=== PATIENT | male | born 1990 | race Caucasian/White ===

== ENCOUNTER 2021-06-25 11:26 | Inpatient (IN) ==
[2021-06-25] MEDS ORDERED: Azithromycin 500 MG in 0.9 % Sodium Chloride 250 ML IVPB ONE (11:41)
[2021-06-25] MEDS ORDERED: Ibuprofen 600 MG TABLET PO ONE (11:41)
[2021-06-25] MEDS ORDERED: cefTRIAXone 1,000 MG in 0.9 % Sodium Chloride 10 ML IVP ONE (11:41)
[2021-06-25] MEDS ORDERED: 0.9 % Sodium Chloride 1,000 ML IVC ONE (11:41)
[2021-06-25] MEDS ORDERED: Albuterol 2.5 MG/3 ML NEBULIZER IH ONE (11:42)
[2021-06-25 12:24] LABS: Eosinophils % 0.1 %
[2021-06-25 12:26] LABS: Basophils % 0.2 %; Hematocrit 41.8 % (37.5-50.1); Hemoglobin 13.7 g/dL (12.9-16.9); Immature Granulocytes % 0.7 % (0-4); Immature Platelets 5.1 % (1.1-6.1); Lymphocytes # 1.1 K/mcL (0.6-4.6); Lymphocytes % 8.8 %; Mean Corpuscular HGB Conc 32.8 g/dL (31.6-35.5); Mean Corpuscular Hemoglobin 32.1 pg (28.0-33.3); Mean Corpuscular Volume 97.9 fL (83.0-100.0); Mean Platelet Volume 10.3 fL (9.4-12.4); Monocytes # 1.2 K/mcL (0.0-1.3); Neutrophils # 9.6 K/mcL (1.6-8.9); Platelet Count 116 K/mcL (140-400); Red Blood Count 4.27 M/mcL (4.19-5.50); Red Cell Distribution Width 15.5 % (11.5-14.5); Segmented Neutrophils % 80.2 %
[2021-06-25 13:50] LABS: Adenovirus Not Detected (Not Detect); Bordetella Pertussis Not Detected (Not Detect); Chlamydophila pneumoniae Not Detected (Not Detect); Coronavirus 229E DETECTED (Not Detect); Coronavirus HKU1 Not Detected (Not Detect); Coronavirus NL63 Not Detected (Not Detect); Coronavirus OC43 Not Detected (Not Detect); Human Metapneumovirus Not Detected (Not Detect); Human Rhinovirus/Enterovirus Not Detected (Not Detect); Influenza A Subtype 2009 H1 Not Detected (Not Detect); Influenza B Not Detected (Not Detect); Mycoplasma pneumoniae Not Detected (Not Detect); Parainfluenza Virus 1 Not Detected (Not Detect); Parainfluenza Virus 2 Not Detected (Not Detect); Parainfluenza Virus 3 Not Detected (Not Detect); Parainfluenza Virus 4 Not Detected (Not Detect); Respiratory Syncytial Virus Not Detected (Not Detect); SARS-CoV-2 Not Detected (Not Detect)
[2021-06-25 15:03] LABS: Alanine Aminotransferase 97 Units/L (7-52); Albumin 3.3 g/dL (3.5-5.7); Albumin/Globulin Ratio 1.1 (1.1-2.2); Alkaline Phosphatase 131 Units/L (34-104); Aspartate Amino Transferase 52 Units/L (13-39); Bilirubin,Direct 0.2 mg/dL (0.0-0.2); Bilirubin,Indirect 0.2 mg/dL (0.0-1.0); Bilirubin,Total 0.4 mg/dL (0.3-1.0); Blood Urea Nitrogen 8 mg/dL (6-20); Calcium 8.5 mg/dL (8.6-10.3); Carbon Dioxide 28 mEq/L (23-29); Chloride 96 mEq/L (98-107); Globulin 3.1 g/dL (2.4-3.5); Glucose 187 mg/dL (70-105); Osmolality,Calculated 275 (280-300); Sodium 131 mEq/L (136-145); Total Protein 6.4 g/dL (6.4-8.9); Troponin I < 0.03 ng/mL (< 0.04)
[2021-06-25 15:22] LABS: Bacteria,Urine Few per hpf (None-Few); Bilirubin,Urine Negative (Negative); Blood,Urine Negative (Negative); Clarity,Urine Turbid (Clear); Color,Urine Light-Yellow (Yellow); Glucose,Urine (UA) Normal (Normal); Ketones,Urine Negative (Negative); Leukocyte Esterase,Urine Negative (Negative); Nitrite,Urine Negative (Negative); Protein,Urine Negative (Neg-Trace); RBC,Urine 0-3 per hpf (0-3); Specific Gravity,Urine 1.009 (1.010-1.025); Urobilinogen,Urine Normal (Normal)
[2021-06-25] MEDS ORDERED: Naloxone 0.4 MG/ML INJ IVP PRN (15:38)
[2021-06-25] MEDS ORDERED: Ondansetron 4 MG/2 ML VIAL IVP PRN (15:38)
[2021-06-25] MEDS ORDERED: Dextrose 4 GM Chewable Tablets PO PRN ×2 (16:05)
[2021-06-25] MEDS ORDERED: D5% in Water 1,000 ML IVC PRN (16:05)
[2021-06-25] MEDS ORDERED: *HR* Dextrose 50 % in Water (Syg) 50 ML SYRINGE IVP PRN (16:05)
[2021-06-25] MEDS ORDERED: polyethylene glycoL 3350 17 GM POWD.PACK PO PRN (16:11)
[2021-06-25] MEDS: Ringers Solution, Lactated 1,000 ML IVC SCH (16:57)
[2021-06-25] MEDS: Insulin LISPRO 300 UNITS/3 ML VIAL SUBQ SCH ×2 (16:58→21:04)
[2021-06-25] MEDS: Ipratropium/Albuterol Neb 3 ML IH SCH ×2 (19:42→23:41)
[2021-06-25] MEDS ORDERED: levETIRAcetam 250 MG TABLET PO SCH (21:00)
[2021-06-25] MEDS ORDERED: Divalproex Sodium 125 MG Sprinkle Capsule (DR) PO SCH (21:00)
[2021-06-25] MEDS: (Clobazam [Onfi] 10 MG Tablet) PO SCH (21:06)
[2021-06-25] MEDS: Fluticasone Propionate Nasal 50 MCG/SPRAY BOTTLE NS SCH (21:07)
[2021-06-25] MEDS: Topiramate 100 MG TABLET PO SCH (21:07)
[2021-06-25] MEDS: Furosemide 20 MG TABLET PO SCH (21:07)
[2021-06-25] MEDS: Baclofen 10 MG TABLET PO SCH (21:07)
[2021-06-25] MEDS: *HR* Heparin 5,000 UNIT/ML VIAL SQ SCH (21:08)
[2021-06-26 01:38] LABS: Eosinophils % 0.3 %; Hemoglobin 13.4 g/dL (12.9-16.9); Red Cell Distribution Width 15.7 % (11.5-14.5)
[2021-06-26 01:39] LABS: Basophils # 0.1 K/mcL (0.0-0.2); Basophils % 1.8 %; Hematocrit 40.9 % (37.5-50.1); Immature Granulocytes % 3.6 % (0-4); Lymphocytes # 1.1 K/mcL (0.6-4.6); Lymphocytes % 15.1 %; Mean Corpuscular HGB Conc 32.8 g/dL (31.6-35.5); Mean Corpuscular Hemoglobin 32.8 pg (28.0-33.3); Mean Platelet Volume 11.2 fL (9.4-12.4); Monocytes # 0.6 K/mcL (0.0-1.3); Monocytes % 7.6 %; Neutrophils # 5.2 K/mcL (1.6-8.9); Nucleated Red Blood Cells 0.3 /100 WBC (0); Platelet Count 103 K/mcL (140-400); Red Blood Count 4.09 M/mcL (4.19-5.50); Segmented Neutrophils % 71.6 %; White Blood Count 7.2 K/mcL (4.3-11.1)
[2021-06-26 01:42] LABS: Blood Urea Nitrogen 7 mg/dL (6-20); Calcium 8.7 mg/dL (8.6-10.3); Carbon Dioxide 27 mEq/L (23-29); Chloride 102 mEq/L (98-107); Glucose 143 mg/dL (70-105); Magnesium 2.1 mg/dL (1.6-2.6); Osmolality,Calculated 280 (280-300); Potassium 4.4 mEq/L (3.5-5.1); Sodium 135 mEq/L (136-145)
[2021-06-26] MEDS: Ipratropium/Albuterol Neb 3 ML IH SCH ×5 (03:56→20:24)
[2021-06-26] MEDS: Ringers Solution, Lactated 1,000 ML IVC SCH (05:25)
[2021-06-26] MEDS: *HR* Heparin 5,000 UNIT/ML VIAL SQ SCH ×3 (05:25→20:46)
[2021-06-26] MEDS: MethylPREDNISolone 40 MG/ML VIAL IVP SCH ×2 (05:26→18:26)
[2021-06-26] MEDS ORDERED: *HR* LORazepam 2 MG/ML VIAL ONE (05:49)
[2021-06-26] MEDS ORDERED: Furosemide 20 MG/2 ML VIAL IVP ONE (05:57)
[2021-06-26] MEDS ORDERED: *HR* LORazepam 2 MG/ML VIAL IVP PRN (05:58)
[2021-06-26] MEDS ORDERED: Cefepime HCl 2,000 MG in 0.9 % Sodium Chloride 10 ML IVP STA (07:57)
[2021-06-26 08:16] LABS: ABG Base Excess 8 mEq/L (-2 to 3); ABG HCO3 36 mEq/L (21-27); ABG Oxygen Saturation 99 % (95-98); ABG PCO2 59 mmHg (35-45); ABG PH 7.39 pH Units (7.32-7.45); ABG PO2 159 mmHg (85-104); ABG TCO2 38 mEq/L (20-26)
[2021-06-26] MEDS ORDERED: Furosemide 20 MG/2 ML VIAL IVP STA (08:32)
[2021-06-26] MEDS: Insulin LISPRO 300 UNITS/3 ML VIAL SUBQ SCH ×4 (08:44→20:42)
[2021-06-26] MEDS: Fluticasone Propionate Nasal 50 MCG/SPRAY BOTTLE NS SCH ×2 (08:57→20:46)
[2021-06-26] MEDS ORDERED: Divalproex Sodium 125 MG Sprinkle Capsule (DR) PO SCH (09:00)
[2021-06-26] MEDS ORDERED: levETIRAcetam 250 MG TABLET PO SCH (09:00)
[2021-06-26] MEDS: Topiramate 25 MG TABLET PO SCH (09:12)
[2021-06-26] MEDS: Baclofen 10 MG TABLET PO SCH ×4 (09:12→20:45)
[2021-06-26] MEDS: Valproic Acid INJ 500 MG in 0.9 % Sodium Chloride 100 ML IVPB SCH ×2 (11:23→18:39)
[2021-06-26] MEDS: Azithromycin 500 MG in 0.9 % Sodium Chloride 250 ML IVPB SCH (12:23)
[2021-06-26] MEDS ORDERED: cefTRIAXone 1,000 MG in 0.9 % Sodium Chloride 10 ML IVP SCH (12:30)
[2021-06-26] MEDS ORDERED: *HR* Midazolam HCl 5 MG/5 ML VIAL IVP PRN ×2 (14:37→16:45)
[2021-06-26] MEDS: Cefepime HCl 2,000 MG in 0.9 % Sodium Chloride 10 ML IVP SCH ×2 (15:25→23:09)
[2021-06-26] MEDS: Furosemide 20 MG TABLET PO SCH (20:45)
[2021-06-26] MEDS: Topiramate 100 MG TABLET PO SCH (20:45)
[2021-06-26] MEDS: levETIRAcetam 750 MG in 0.9 % Sodium Chloride 100 ML IVPB SCH (20:46)
[2021-06-26] MEDS: (Clobazam [Onfi] 10 MG Tablet) PO SCH (20:47)
[2021-06-27] MEDS: Ipratropium/Albuterol Neb 3 ML IH SCH ×7 (00:01→23:08)
[2021-06-27] MEDS: Valproic Acid INJ 500 MG in 0.9 % Sodium Chloride 100 ML IVPB SCH ×3 (01:35→17:17)
[2021-06-27] MEDS: MethylPREDNISolone 40 MG/ML VIAL IVP SCH ×2 (04:59→17:17)
[2021-06-27] MEDS: *HR* Heparin 5,000 UNIT/ML VIAL SQ SCH ×3 (04:59→20:24)
[2021-06-27] MEDS: Topiramate 25 MG TABLET PO SCH (08:12)
[2021-06-27] MEDS: Baclofen 10 MG TABLET PO SCH ×3 (08:12→20:00)
[2021-06-27] MEDS: Cefepime HCl 2,000 MG in 0.9 % Sodium Chloride 10 ML IVP SCH ×2 (08:13→17:17)
[2021-06-27] MEDS: Fluticasone Propionate Nasal 50 MCG/SPRAY BOTTLE NS SCH ×2 (08:16→20:00)
[2021-06-27] MEDS: Insulin LISPRO 300 UNITS/3 ML VIAL SUBQ SCH ×4 (08:16→20:27)
[2021-06-27 08:55] LABS: Basophils # 0.1 K/mcL (0.0-0.2); Basophils % 1.4 %; Hematocrit 40.7 % (37.5-50.1); Hemoglobin 13.1 g/dL (12.9-16.9); Immature Granulocytes % 2.9 % (0-4); Lymphocytes # 1.6 K/mcL (0.6-4.6); Lymphocytes % 27.2 %; Mean Corpuscular HGB Conc 32.2 g/dL (31.6-35.5); Mean Corpuscular Hemoglobin 32.8 pg (28.0-33.3); Mean Corpuscular Volume 101.8 fL (83.0-100.0); Mean Platelet Volume 9.5 fL (9.4-12.4); Monocytes # 0.4 K/mcL (0.0-1.3); Neutrophils # 3.6 K/mcL (1.6-8.9); Platelet Count 155 K/mcL (140-400); Red Cell Distribution Width 15.9 % (11.5-14.5); Segmented Neutrophils % 62.5 %; White Blood Count 5.8 K/mcL (4.3-11.1)
[2021-06-27 10:08] LABS: BUN/Creatinine Ratio 87 (6-26); Blood Urea Nitrogen 20 mg/dL (6-20); Calcium 8.9 mg/dL (8.6-10.3); Carbon Dioxide 35 mEq/L (23-29); Chloride 104 mEq/L (98-107); Glucose 166 mg/dL (70-105); Osmolality,Calculated 306 (280-300); Potassium 3.6 mEq/L (3.5-5.1); Sodium 145 mEq/L (136-145); eGFR For African Americans > 60 (> 60); eGFR For Non-African Americans > 60 (> 60)
[2021-06-27] MEDS: Azithromycin 500 MG in 0.9 % Sodium Chloride 250 ML IVPB SCH (12:09)
[2021-06-27] MEDS: (Clobazam [Onfi] 10 MG Tablet) PO SCH (20:01)
[2021-06-27] MEDS: Topiramate 100 MG TABLET PO SCH (20:01)
[2021-06-27] MEDS: Furosemide 20 MG TABLET PO SCH (20:01)
[2021-06-27] MEDS: GUAIFENESIN 400 MG TABLET PO PRN (20:04)
[2021-06-27] MEDS: levETIRAcetam 750 MG in 0.9 % Sodium Chloride 100 ML IVPB SCH (20:47)
[2021-06-28] MEDS: Cefepime HCl 2,000 MG in 0.9 % Sodium Chloride 10 ML IVP SCH ×3 (00:27→15:37)
[2021-06-28] MEDS: Valproic Acid INJ 500 MG in 0.9 % Sodium Chloride 100 ML IVPB SCH ×3 (00:28→18:18)
[2021-06-28] MEDS: Ipratropium/Albuterol Neb 3 ML IH SCH ×6 (04:43→23:57)
[2021-06-28] MEDS: MethylPREDNISolone 40 MG/ML VIAL IVP SCH ×2 (06:22→18:18)
[2021-06-28] MEDS: *HR* Heparin 5,000 UNIT/ML VIAL SQ SCH ×3 (06:22→20:22)
[2021-06-28] MEDS: Insulin LISPRO 300 UNITS/3 ML VIAL SUBQ SCH ×4 (08:12→20:52)
[2021-06-28] MEDS: Topiramate 25 MG TABLET PO SCH (08:14)
[2021-06-28] MEDS: Baclofen 10 MG TABLET PO SCH ×3 (08:14→20:21)
[2021-06-28] MEDS: Fluticasone Propionate Nasal 50 MCG/SPRAY BOTTLE NS SCH ×2 (08:15→20:20)
[2021-06-28 10:15] LABS: Hematocrit 39.3 % (37.5-50.1); Hemoglobin 12.8 g/dL (12.9-16.9); Mean Corpuscular HGB Conc 32.6 g/dL (31.6-35.5); Mean Corpuscular Hemoglobin 32.7 pg (28.0-33.3); Mean Corpuscular Volume 100.3 fL (83.0-100.0); Mean Platelet Volume 9.4 fL (9.4-12.4); Platelet Count 172 K/mcL (140-400); Red Blood Count 3.92 M/mcL (4.19-5.50); White Blood Count 7.2 K/mcL (4.3-11.1)
[2021-06-28 10:30] LABS: BUN/Creatinine Ratio 115 (6-26); Blood Urea Nitrogen 23 mg/dL (6-20); Calcium 8.9 mg/dL (8.6-10.3); Carbon Dioxide 28 mEq/L (23-29); Chloride 106 mEq/L (98-107); Glucose 199 mg/dL (70-105); Osmolality,Calculated 305 (280-300); Potassium 3.1 mEq/L (3.5-5.1); Sodium 143 mEq/L (136-145); eGFR For African Americans > 60 (> 60); eGFR For Non-African Americans > 60 (> 60)
[2021-06-28 11:10] LABS: Lymphocytes # 1.8 K/mcL (0.6-4.6); Monocytes # 0.4 K/mcL (0.0-1.3); Neutrophils # 4.8 K/mcL (1.6-8.9); Platelet Estimate Normal (Normal)
[2021-06-28] MEDS: Azithromycin 500 MG in 0.9 % Sodium Chloride 250 ML IVPB SCH (12:07)
[2021-06-28] MEDS: levETIRAcetam 750 MG in 0.9 % Sodium Chloride 100 ML IVPB SCH (20:21)
[2021-06-28] MEDS: GUAIFENESIN 400 MG TABLET PO PRN (20:22)
[2021-06-28] MEDS: (Clobazam [Onfi] 10 MG Tablet) PO SCH (20:22)
[2021-06-28] MEDS: Furosemide 20 MG TABLET PO SCH (20:22)
[2021-06-28] MEDS: Topiramate 100 MG TABLET PO SCH (20:22)
[2021-06-29] MEDS: Cefepime HCl 2,000 MG in 0.9 % Sodium Chloride 10 ML IVP SCH ×3 (00:43→16:09)
[2021-06-29] MEDS: Valproic Acid INJ 500 MG in 0.9 % Sodium Chloride 100 ML IVPB SCH ×3 (00:44→18:34)
[2021-06-29 02:59] LABS: ABG Base Excess 10 mEq/L (-2 to 3); ABG HCO3 37 mEq/L (21-27); ABG Oxygen Saturation 90 % (95-98); ABG PCO2 63 mmHg (35-45); ABG PH 7.38 pH Units (7.32-7.45); ABG PO2 63 mmHg (85-104); ABG TCO2 39 mEq/L (20-26)
[2021-06-29 03:15] LABS: Basophils % 0.1 %; Hematocrit 38.8 % (37.5-50.1); Hemoglobin 12.4 g/dL (12.9-16.9); Immature Granulocytes % 4.5 % (0-4); Lymphocytes # 2.5 K/mcL (0.6-4.6); Mean Corpuscular Hemoglobin 32.7 pg (28.0-33.3); Mean Corpuscular Volume 102.4 fL (83.0-100.0); Mean Platelet Volume 9.1 fL (9.4-12.4); Monocytes # 0.8 K/mcL (0.0-1.3); Monocytes % 10.3 %; Platelet Count 191 K/mcL (140-400); Red Blood Count 3.79 M/mcL (4.19-5.50); Red Cell Distribution Width 15.8 % (11.5-14.5); Segmented Neutrophils % 52.1 %; White Blood Count 7.6 K/mcL (4.3-11.1)
[2021-06-29 04:03] LABS: Platelet Estimate Normal (Normal); Reactive Lymphocytes Present (Not Present)
[2021-06-29 04:15] LABS: Blood Urea Nitrogen 12 mg/dL (6-20); Calcium 8.7 mg/dL (8.6-10.3); Carbon Dioxide 35 mEq/L (23-29); Chloride 100 mEq/L (98-107); Glucose 216 mg/dL (70-105); Osmolality,Calculated 296 (280-300); Potassium 3.7 mEq/L (3.5-5.1); Sodium 140 mEq/L (136-145)
[2021-06-29] MEDS: Ipratropium/Albuterol Neb 3 ML IH SCH ×5 (04:24→19:48)
[2021-06-29] MEDS: *HR* Heparin 5,000 UNIT/ML VIAL SQ SCH ×2 (05:18→16:10)
[2021-06-29] MEDS: MethylPREDNISolone 40 MG/ML VIAL IVP SCH ×2 (05:18→18:28)
[2021-06-29] MEDS: Topiramate 25 MG TABLET PO SCH (08:23)
[2021-06-29] MEDS: Fluticasone Propionate Nasal 50 MCG/SPRAY BOTTLE NS SCH ×2 (08:23→20:08)
[2021-06-29] MEDS: Baclofen 10 MG TABLET PO SCH ×3 (08:24→20:05)
[2021-06-29] MEDS: Insulin LISPRO 300 UNITS/3 ML VIAL SUBQ SCH ×3 (08:56→18:36)
[2021-06-29 11:06] VITALS: TEMP 97.8
[2021-06-29] MEDS: Azithromycin 500 MG in 0.9 % Sodium Chloride 250 ML IVPB SCH (16:10)
[2021-06-29 16:46] VITALS: BP 115/68; PULSE 80; O2SAT 93
[2021-06-29] MEDS: Topiramate 100 MG TABLET PO SCH (20:04)
[2021-06-29] MEDS: Furosemide 20 MG TABLET PO SCH (20:05)
[2021-06-29] MEDS: GUAIFENESIN 400 MG TABLET PO PRN (20:07)
[2021-06-29] MEDS: (Clobazam [Onfi] 10 MG Tablet) PO SCH (20:07)
== END 2021-06-29 20:40 | disposition home health service (06) | DRG 720 ==
LOC: EMEROOARM 11:26 → 2NENU 11:26 → SUATTDRO 15:23 → 2NENU 16:19
PROVIDERS: ADMIT Internal Medicine; ATTEND Internal Medicine